=== PATIENT | female | born 2000 | race Caucasian/White ===

== ENCOUNTER 2023-07-23 08:52 | Emergency (ER) | payer OTHER ==
[2023-07-23 09:01] VITALS: BP 125/83; PULSE 87; RESP 18; TEMP 100.4; BMI 18.9
[2023-07-23] MEDS ORDERED: IBUPROFEN 600 MG TABLET (FP) PO ONE ×2 (09:25→09:28)
== END 2023-07-23 11:02 | disposition home or self-care (01) ==
LOC: JERFT 08:52 → JER 08:52 → JERFT 11:02
DX: M79.10 Myalgia, unspecified site (principal); R07.89 Other chest pain; R10.12 Left upper quadrant pain; R06.02 Shortness of breath
CPT/HCPCS: 71046-TC-FY; 99283-25